=== PATIENT | female | born 1955 | race Hispanic/Latino ===

== ENCOUNTER 2021-03-23 09:41 | Observation (INO) | payer BC, OTHER ==
[2021-03-23 10:19] LABS: Protime INR 1.01
[2021-03-23 10:24] LABS: Absolute Lymphocytes (CBC) 2.1 K/uL (0.7-4.9); Basophils % 0.7 % (0-1.3); Lymphocytes % 29.6 % (15.3-44.8); MPV 7.5 fL (7.6-11.3); RBC Red Blood Cell Count 4.29 M/uL (3.86-4.86)
[2021-03-23 10:48] LABS: ALT/SGPT 27 U/L (12-78); AST/SGOT 19 U/L (15-37); Albumin 4.4 g/dL (3.4-5.0); Alkaline Phosphatase 88 U/L (45-117); BUN Blood Urea Nitrogen 23 mg/dL (7-18); Bicarbonate 26 mmol/L (21-32); Bilirubin Direct 0.1 mg/dL (0-0.2); Bilirubin Total 0.6 mg/dL (0.2-1.0); Glucose Level 114 mg/dL (74-106); Magnesium 2.2 mg/dL (1.8-2.4); NT PRO-BNP 110 pg/mL (<125); Potassium 3.2 mmol/L (3.5-5.1); Protein, Total 8.6 g/dL (6.4-8.2); Sodium Level 141 mmol/L (136-145); Troponin (Emerg Dept Use Only) < 0.02 ng/mL (0.0-0.045)
[2021-03-23] MEDS ORDERED: HYDRALAZINE HCL 20 MG/ML VIAL ONE (11:23)
--- NOTE | 2021-03-23 11:23 | RAD REPORT ---
EXAM DESCRIPTION: RAD - Chest Single View - 03/23/2021 11:13 am CLINICAL HISTORY: chest pressure/congestion COMPARISON: CHEST SINGLE VIEW dated 04/27/2014; FLUOROSCOPY-<1 HOUR dated 04/27/2014; THORAX WO CONTRA ST dated 04/29/2014 FINDINGS: Lines: Right IJ approach Port-A-Cath with tip overlying the right brachiocephalic vein. Lungs: No evidence of edema or pneumonia. Pleural: No significant pleural effusions or pneumothorax. Cardiac: The heart size is within normal limits. Bones: No acute fractures. Other: Surgical clips in the bilateral axilla. IMPRESSION: No acute cardiopulmonary disease.
--- NOTE | 2021-03-23 11:44 | EDPHYS ---
Physician Documentation [facility] Name: Sherrell Holm Age: 65 yrs Sex: Female : 1955 Arrival Date: 03/23/2021 Time: 09:43 Bed 4 Private MD: ED Physician Emre Lewis HPI: 03/23 10:22 This 65 yrs old Female presents to ER via Ambulatory with complaints of High jr8 Blood Pressure. 10:22 Associated signs and symptoms: Pertinent positives: chest pain, dyspnea. Severity of jr8 symptoms: At its worst the blood pressure was moderate. The patient has not experienced similar symptoms in the past. The patient has not recently seen a physician. This is a 65-year-old female patient that presented to emergency room with complaints of high blood pressure, shortness of breath, chest tightness.. 10:23 Onset: The symptoms/episode began/occurred gradually, 5 day(s) ago. jr8 Historical: - Allergies: 09:59 cancer medication; aa5 - Home Meds: 09:59 None [Active]; aa5 - PMHx: 09:59 Breast Cancer; aa5 - PSHx: 09:59 Double mastectomy; aa5 - Immunization history:: Client reports having NOT received the Covid vaccine. - Social history:: Smoking status: Patient denies any tobacco usage or history of. ROS: 10:23 Eyes: Negative for injury, pain, redness, and discharge, ENT: Negative for injury, jr8 pain, and discharge, Neck: Negative for injury, pain, and swelling, Back: Negative for injury and pain, MS/Extremity: Negative for injury and deformity, Skin: Negative for injury, rash, and discoloration, Neuro: Negative for headache, weakness, numbness, tingling, and seizure. 10:23 Cardiovascular: Positive for chest pain, Negative for edema, orthopnea, palpitations, paroxysmal nocturnal dyspnea. 10:23 Respiratory: Positive for dyspnea on exertion, shortness of breath. 10:23 Abdomen/GI: Positive for nausea. Exam: 10:23 Eyes: Pupils equal round and reactive to light, extra-ocular motions intact. Lids and jr8 lashes normal. Conjunctiva and sclera are non-icteric and not injected. Cornea within normal limits. Periorbital areas with no swelling, redness, or edema. ENT: Nares patent. No nasal discharge, no septal abnormalities noted. Tympanic membranes are normal and external auditory canals are clear. Oropharynx with no redness, swelling, or masses, exudates, or evidence of obstruction, uvula midline. Mucous membranes moist. Neck: Trachea midline, no thyromegaly or masses palpated, and no cervical lymphadenopathy. Supple, full range of motion without nuchal rigidity, or vertebral point tenderness. No Meningismus. Abdomen/GI: Soft, non-tender, with normal bowel sounds. No distension or tympany. No guarding or rebound. No evidence of tenderness throughout. Back: No spinal tenderness. No costovertebral tenderness. Full range of motion. Skin: Warm, dry with normal turgor. Normal color with no rashes, no lesions, and no evidence of cellulitis. MS/ Extremity: Pulses equal, no cyanosis. Neurovascular intact. Full, normal range of motion. Neuro: Awake and alert, GCS 15, oriented to person, place, time, and situation. Cranial nerves II-XII grossly intact. Motor strength 5/5 in all extremities. Sensory grossly intact. 10:23 Cardiovascular: Rate: tachycardic, Rhythm: regular, Pulses: Pulses are 3+ in right radial artery and left radial artery. Heart sounds: normal, normal S1and S2, no S3 or S4, no murmur, no rub, no gallop, Edema: is not appreciated, JVD: is not appreciated. Vital Signs: 09:46 BP 205 / 143; Pulse 127; Resp 18 S; Temp 98.6(O); Pulse Ox 97% on R/A; Weight 59.42 kg aa5 (R); Height 5 ft. 0 in. (152.40 cm) (R); 10:10 BP 198 / 103; Pulse 103; Resp 20 S; Pulse Ox 99% on R/A; aa5 11:04 BP 170 / 91; Pulse 91; Resp 18 S; Pulse Ox 100% on R/A; aa5 11:42 BP 157 / 107; Pulse 109; Resp 20 S; Pulse Ox 99% on R/A; aa5 11:43 Pulse 140; aa5 11:52 Pulse 120; aa5 13:00 BP 150 / 86; Pulse 115; Resp 18 S; Temp 98.3(TE); Pulse Ox 99% on R/A; aa5 09:46 Body Mass Index 25.58 (59.42 kg, 152.40 cm) [facility] MDM: 09:50 Patient medically screened. [facility] [[email or web address]] 11:42 Data reviewed: vital signs, nurses notes, lab test result(s), EKG, radiologic studies, jr CT scan, plain films. Data interpreted: Pulse oximetry: on room air is 98 %. Interpretation: normal. Counseling: I had a detailed discussion with the patient and/or guardian regarding: the historical points, exam findings, and any diagnostic results supporting the discharge/admit diagnosis, lab results, radiology results, the need for further work-up and treatment in the hospital. ED course: Tinges to have persistent tachycardia and chest tightness. Will be admitted for observation to have cardiology see her. Will complete CAT scan of her chest to rule out pulmonary embolism as well.. 03/23 09:57 Order name: Basic Metabolic Panel [facility] 03/23 09:57 Order name: CBC with Diff; Complete Time: 11:02 [facility] 03/23 09:57 Order name: LFT's; Complete Time: 11:02 [facility] 03/23 09:57 Order name: Magnesium; Complete Time: 11:02 [facility] 03/23 09:57 Order name: NT PRO-BNP; Complete Time: 11:02 [facility] 03/23 09:57 Order name: PT-INR; Complete Time: 10:24 [facility] 03/23 09:57 Order name: Troponin (emerg Dept Use Only); Complete Time: 11:02 [facility] 03/23 09:57 Order name: XRAY Chest (1 view); Complete Time: 11:37 [facility] 03/23 09:58 Order name: Basic Metabolic Panel; Complete Time: 11:02 [facility] 03/23 12:00 Order name: COVID-19 : Document "Date of Symptom Onset" if Symptomatic. [facility] 03/23 14:46 Order name: SARS-COV-2 RT PCR; Complete Time: 14:54 [facility] 03/23 15:06 Order name: T4 Free; Complete Time: 15:41 [facility] 03/23 15:06 Order name: Thyroid Stimulating Hormone; Complete Time: 15:41 [facility] 03/23 17:11 Order name: Troponin I; Complete Time: 17:12 [facility] 03/23 09:57 Order name: EKG; Complete Time: 09:58 [facility] 03/23 09:57 Order name: Cardiac monitoring; Complete Time: 10:00 aa5 03/23 09:57 Order name: EKG - Nurse/Tech; Complete Time: 10:00 aa5 03/23 09:57 Order name: IV Saline Lock; Complete Time: 10:12 aa5 03/23 09:57 Order name: Labs collected and sent; Complete Time: 10:12 aa5 03/23 09:57 Order name: O2 Per Protocol; Complete Time: 10:00 aa5 03/23 09:57 Order name: O2 Sat Monitoring; Complete Time: 10:00 aa5 03/23 11:42 Order name: CT Chest For PE Angio; Complete Time: 12:29 jr8 03/23 16:18 Order name: CT; Complete Time: 16:30 EDMS Administered Medications: 10:55 Drug: hydrALAZINE 10 mg Route: IVP; Site: right antecubital; aa5 11:42 Follow up: Response: No adverse reaction aa5 11:23 Drug: Potassium Chloride 40 mEq Route: PO; aa5 11:52 Follow up: Response: No adverse reaction aa5 12:50 Drug: Aspirin Chewable Tablet 324 mg Route: PO; aa5 14:00 Follow up: Response: No adverse reaction aa5 Disposition: 18:33 Co-signature as Attending Physician, Emre Lewis MD I agree with the assessment and rn plan of care. Attestation: The patient's history, exam findings, diagnostics, and a summary of any interventions or procedures was reviewed in detail with Venkat GALEANO. Disposition Summary: 03/23/21 11:43 Hospitalization Ordered Hospitalization Status: Observation [facility] [[email or web address]] Provider: Carlos Enrique Bearden Amarilis Condition: Stable [facility] [[email or web address]] Problem: new jr8 Symptoms: are unchanged jr8 Bed/Room Type: Standard [facility] [[email or web address]] Location: Telemetry/MedSurg (observation)(03/23/21 16:33) eb Room Assignment: 215(03/23/21 16:33) eb Diagnosis - Chest pain, unspecified jr Forms: - Medication Reconciliation Form jr8 - SBAR form jr8 Signatures: Dispatcher [employer] EDMS Emre Lewis MD MD rn Calderon, Audri, RN RN aa5 Roszak, Josh, PA PA [facility] [[email or web address]] Asmita Carvajal eb Corrections: (The following items were deleted from the chart) 11:43 Telemetry/MedSurg (observation) jr8 aa5 15: 11:43 jr8 aa5 16: 15:25 [facility] aa5 eb 16:33 15:25 [facility]- aa5 eb
--- NOTE | 2021-03-23 11:44 | ER ---
Nurse's Notes [facility] Name: Sherrell Holm Age: 65 yrs Sex: Female : 1955 Arrival Date: 03/23/2021 Time: 09:43 Bed 4 Private MD: Diagnosis: Chest pain, unspecified Presentation: 03/23 09:46 Chief complaint: Patient states: chest pressure and congestion that began on Friday, pt aa5 reports being seen at [facility] today and sent here because her blood pressure was "high". Pt also reports difficulty breathing, denies cough. 09:46 Coronavirus screen: congestion. Ebola Screen: Patient negative for fever greater than aa5 or equal to 101.5 degrees Fahrenheit, and additional compatible Ebola Virus Disease symptoms. Initial Sepsis Screen: Does the patient meet any 2 criteria? HR > 90 bpm. Does the patient have a suspected source of infection? No. Patient's initial sepsis screen is negative. Risk Assessment: Do you want to hurt yourself or someone else? Patient reports no desire to harm self or others. Onset of symptoms was February 2021. 09:46 Acuity: GRACE 2 aa5 09:46 Method Of Arrival: Ambulatory aa5 Historical: - Allergies: 09:59 cancer medication; aa5 - Home Meds: 09:59 None [Active]; aa5 - PMHx: 09:59 Breast Cancer; aa5 - PSHx: 09:59 Double mastectomy; aa5 - Immunization history:: Client reports having NOT received the Covid vaccine. - Social history:: Smoking status: Patient denies any tobacco usage or history of. Screenin:02 Abuse screen: Denies threats or abuse. Denies injuries from another. Nutritional jl7 screening: No deficits noted. Tuberculosis screening: No symptoms or risk factors identified. Fall Risk IV access (20 points). Total Man Fall Scale indicates No Risk (0-24 pts). Assessment: 09:50 General: Appears comfortable, Behavior is calm, cooperative. Pain: Denies pain. Neuro: aa5 Level of Consciousness is awake, alert, obeys commands, Oriented to person, place, time, situation. Cardiovascular: Heart tones S1 S2 present Rhythm is regular. Respiratory: Reports shortness of breath chest congestion/pressure Airway is patent Respiratory effort is even, unlabored, Respiratory pattern is regular, symmetrical, Breath sounds are clear bilaterally. GI: Abdomen is round non-distended, Patient currently denies diarrhea, nausea, vomiting. : No signs and/or symptoms were reported regarding the genitourinary system. EENT: No signs and/or symptoms were reported regarding the EENT system. Derm: Skin is pink, warm \\T\\ dry. Musculoskeletal: Range of motion: intact in all extremities. 11:04 Reassessment: Patient is alert, oriented x 3, equal unlabored respirations, skin aa5 warm/dry/pink. Patient denies pain at this time. General: Appears comfortable, Behavior is calm, cooperative. 11:42 Reassessment: Patient is alert, oriented x 3, equal unlabored respirations, skin aa5 warm/dry/pink. Pt currently complaining of increased chest pressure, pt currently crying and appears anxious. Pt's HR increased to 140 bpm. PA at bedside. PA notified pt of need for admission, pt verbalized understanding. . 11:52 Reassessment: Pt to CT via stretcher, HR currently 120bpm. Pt appears more calm than aa5 previous assessment. . 12:35 Reassessment: Pt back from CT scan, Nolan Jiménez NP (hospitalist at bedside). . aa5 13:00 Reassessment: Patient is alert, oriented x 3, equal unlabored respirations, skin aa5 warm/dry/pink. Patient denies pain at this time. 13:00 General: Behavior is anxious. aa5 Vital Signs: 09:46 BP 205 / 143; Pulse 127; Resp 18 S; Temp 98.6(O); Pulse Ox 97% on R/A; Weight 59.42 kg aa5 (R); Height 5 ft. 0 in. (152.40 cm) (R); 10:10 BP 198 / 103; Pulse 103; Resp 20 S; Pulse Ox 99% on R/A; aa5 11:04 BP 170 / 91; Pulse 91; Resp 18 S; Pulse Ox 100% on R/A; aa5 11:42 BP 157 / 107; Pulse 109; Resp 20 S; Pulse Ox 99% on R/A; aa5 11:43 Pulse 140; aa5 11:52 Pulse 120; aa5 13:00 BP 150 / 86; Pulse 115; Resp 18 S; Temp 98.3(TE); Pulse Ox 99% on R/A; aa5 09:46 Body Mass Index 25.58 (59.42 kg, 152.40 cm) aa5 ED Course: 09:43 Patient arrived in ED. am2 09:46 Arm band placed on. aa5 09:50 Екатерина Miller RN is Primary Nurse. aa5 09:50 Venkat Mendoza PA is PHCP. jr8 09:50 Emre Lewis MD is Attending Physician. jr8 09:58 Triage completed. aa5 10:02 Patient has correct armband on for positive identification. Placed in gown. Bed in low jl7 position. Call light in reach. Side rails up X 1. quality assurance monitor on. Pulse ox on. NIBP on. Warm blanket given. 10:02 EKG done, by ED staff, reviewed by Venkat GALEANO. jl7 10:20 Inserted saline lock: 22 gauge in left antecubital area, using aseptic technique. aa5 ,using aseptic technique. IV inserted by ADALBERTO Mosley. 11:13 XRAY Chest (1 view) In Process Unspecified. EDMS 11:42 Carlos Enrique Bearden DO is Hospitalizing Provider. jr8 12:14 CT Chest For PE Angio In Process Unspecified. EDMS 14:00 Patient admitted, IV remains in place. aa5 14:00 No provider procedures requiring assistance completed. aa5 Administered Medications: 10:55 Drug: hydrALAZINE 10 mg Route: IVP; Site: right antecubital; aa5 11:42 Follow up: Response: No adverse reaction aa5 11:23 Drug: Potassium Chloride 40 mEq Route: PO; aa5 11:52 Follow up: Response: No adverse reaction aa5 12:50 Drug: Aspirin Chewable Tablet 324 mg Route: PO; aa5 14:00 Follow up: Response: No adverse reaction aa5 Outcome: 11:43 Decision to Hospitalize by Provider. jr8 14:00 Admitted to ER Hold. Please see [facility] for further documentation. aa5 14:00 Condition: stable 14:00 Instructed on the need for admit, Demonstrated understanding of instructions. aa5 17:58 Patient left the ED. aa5 Signatures: Dispatcher [employer] EDAZ Екатерина Miller RN RN aa5 Venkat Mendoza PA PA jr8 Benito Chamberlain RN RN jl7 Sumi Fisher am2 Corrections: (The following items were deleted from the chart) 16:00 09:46 BP 205 / 143; Pulse 127bpm; Resp 18bpm; Spontaneous; Pulse Ox 97% RA; Temp 98.6F aa5 Oral; 59.42 kg Reported; Height 5 ft. 1 in. Reported; BMI: 24.7; aa5 03/24 15:14 14:00 Response: No adverse reaction aa5 aa5
[2021-03-23] MEDS ORDERED: POTASSIUM CL SA 10 MEQ TAB PO ONE (11:45)
[2021-03-23] MEDS ORDERED: ASPIRIN 81 MG CHEWABLE TABLET ONE (12:22)
--- NOTE | 2021-03-23 12:23 | RAD REPORT ---
EXAM DESCRIPTION: CT - Chest For Pe Angio - 03/23/2021 12:14 pm CLINICAL HISTORY: CHEST PAIN COMPARISON: THORAX WO CONTRAST dated 04/29/2014; RAD THERAPY FLD PLACECHEST dated 11/14/2011; THORAX W CONTRAST dated 04/01/2011 FINDINGS: Chest Wall: Right upper chest wall Port-A-Cath with tip overlying the right brachiocephali c vein. Surgical clips in the axilla. Lungs: 8 mm right upper lobe solid pulmonary nodule previously measured 12 millimeters. Small focus o f nodularity in the left upper lobe on image 33, series 402 is chronic and of doubtful clinical signi ficance. Postradiation changes in the left lung. Pleura: No significant effusions or pneumothorax. Mediastinum/ulises: No pathologic lymphadenopathy. Moderate hiatal hernia. Pulmonary arteries/Aorta: No filling defect identified. No aortic aneurysm. Heart: No significant pericardial effusion. Normal heart size. Upper abdomen: No acute abnormality. Bones: No acute abnormality. All CT scans are performed using dose optimization technique as appropriate and may include automated exposure control or mA/KV adjustment according to patient size. IMPRESSION: Negative for pulmonary embolism. No acute process identified. Incidental findings as not ed above.
[2021-03-23] MEDS ORDERED: HYDROCODONE/APAP 5/325 MG TAB PO PRN (14:11)
[2021-03-23] MEDS: NA CHLORIDE 0.9% 1,000 ML IV SCH ×2 (14:11→18:27)
[2021-03-23] MEDS ORDERED: ACETAMINOPHEN 500 MG TAB PO PRN (14:11)
[2021-03-23] MEDS ORDERED: ONDANSETRON 4 MG/2 ML VIAL IV PRN (14:11)
[2021-03-23] MEDS ORDERED: HYDRALAZINE HCL 20 MG/ML VIAL IV PRN (14:46)
--- NOTE | 2021-03-23 14:55 | P.HP ---
Certification for Inpatient With expected LOS: >2 Midnights Patient will require the following post-hospital care: None Practitioner: I am a practitioner with admitting privileges, knowledge of patient current condition, hospital course, and medical plan of care. Services: Services provided to patient in accordance with Admission requirements found in Title 42 Section 412.3 of the Code of Federal Regulations <Nolan Jiménez - Last Filed: 03/23/21 14:50> Patient admitted to: Observation With expected LOS: <2 Midnights <Carlos Enrique Bearden - Last Filed: 03/23/21 16:28> Patient History Date of Service: 03/23/21 Primary Care Provider: None Reason for admission: Hypertension with CP History of Present Illness: 65-year-old female who has experienced 6 days of intermittent chest pressure and high blood pressure. She has had 2-3 episodes of chest pressure per day each lasting a few minutes. She rates the discomfort a 10 out of 10. She is also had tachycardia frequently during the past 6 days. Apparently she went to the [facility] today in order to be evaluated and they referred her to the emergency room because of her blood pressure. Home medications list reviewed: No - Past Medical/Surgical History Diabetic: No -: HTN -: Depression -: Left mastectomy -: right masectomy Psychosocial/ Personal History: Retired, living at home with - Family History Mother -: Hypertension Father -: Hypertension Brother -: Hypertension Sister -: Hypertension - Social History Smoking Status: Never smoker Alcohol use: No CD- Drugs: No Caffeine use: Yes Place of Residence: Home <KadyahsanNolan - Last Filed: 03/23/21 14:50> Date of Service: 03/23/21 - Past Medical/Surgical History -: Right masectomy <Carlos Enrique Bearden - Last Filed: 03/23/21 16:28> Allergies platelet Adverse Reaction (Intermediate, Uncoded 04/27/14 09:08) Itching Home Medications: NK [No Home Meds] 04/25/14 Review of Systems 10-point ROS is otherwise unremarkable General: Malaise Eyes: Redness ENT: Unremarkable Respiratory: Unremarkable Cardiovascular: Chest Pain (Pressure mid chest radiating to neck and also involving back. ) Gastrointestinal: Unremarkable Genitourinary: Unremarkable Musculoskeletal: Unremarkable Integumentary: Rash (Facial rash) Neurological: Unremarkable Lymphatics: Unremarkable <Nolan Jiménez - Last Filed: 03/23/21 14:50> Physical Examination - Physical Exam General: Alert, In no apparent distress, Oriented x3, Cooperative HEENT: Atraumatic, Normocephalic, PERRLA, Other (Eyes slightly reddened) Neck: Supple, 2+ carotid pulse no bruit, JVD not distended Respiratory: Clear to auscultation bilaterally, Normal air movement Cardiovascular: No edema, Normal pulses, Regular rate/rhythm, Other (Tachycardia) Capillary refill: Brisk Gastrointestinal: Normal bowel sounds, Soft and benign, Non-distended, Other (States burning feeling during examination. No guarding or wincing noted) Musculoskeletal: No clubbing, No swelling, No contractures, No erythema Integumentary: Rash(es) (Rash on cheeks ) Neurological: Normal speech, Normal strength at 5/5 x4 extr, Normal tone, Sensation intact External genitalia: Deferred Rectal: Deferred - Studies Laboratory Data (last 24 hrs) 03/23/21 10:08: PT 11.6, INR 1.01 03/23/21 10:08: WBC 7.00, Hgb 15.0, Hct 43.0, Plt Count 299 03/23/21 10:08: Sodium 141, Potassium 3.2 L, BUN 23 H, Creatinine 0.81, Glucose 114 H, Magnesium 2.2, Total Bilirubin 0.6, AST 19, ALT 27, Alkaline Phosphatase 88 <Nolan Jiménez - Last Filed: 03/23/21 14:50> - Studies Laboratory Data (last 24 hrs) 03/23/21 10:08: PT 11.6, INR 1.01 03/23/21 10:08: WBC 7.00, Hgb 15.0, Hct 43.0, Plt Count 299 03/23/21 10:08: Sodium 141, Potassium 3.2 L, BUN 23 H, Creatinine 0.81, Glucose 114 H, Magnesium 2.2, Total Bilirubin 0.6, AST 19, ALT 27, Alkaline Phosphatase 88 <Carlos Enrique Bearden - Last Filed: 03/23/21 16:28> Assessment and Plan - Plan Assessment: Hypertension Atypical Chest Pain Plan: Hypertension:Metoprolol po, hydralizine 10mg prn monitor blood pressure. Atypical Chest Pain: O2 as needed, cardiac care unit nurse, trend troponins, aspirin, echocardiogram if available. Consult with Dr. Santana. DVT PPx:Lovastatin 40mg SQ CODE STATUS: Full Code Discharge Plan: Home Plan to discharge in: 48 Hours - Advance Directives Does patient have a Living Will: No Does patient have a Durable POA for Healthcare: No - Code Status/Comfort Care Code Status Assessed: Yes Code Status: Full Code Critical Care: No Time Spent Managing Pts Care (In Minutes): 70 <Nolan Jiménez - Last Filed: 03/23/21 14:50> - Plan Patient seen and evaluated. Discussed with nurse practitioner. Agree with plan of care. COVID: Negative CT Scan: COMPARISON: THORAX WO CONTRAST dated 04/29/2014; RAD THERAPY FLD PLACECHEST dated 11/14/2011; THORAX W CONTRAST dated 04/01/2011 FINDINGS: Chest Wall: Right upper chest wall Port-A-Cath with tip overlying the right brachiocephalic vein. Surgical clips in the axilla. Lungs: 8 mm right upper lobe solid pulmonary nodule previously measured 12 millimeters. Small focus of nodularity in the left upper lobe on image 33, series 402 is chronic and of doubtful clinical significance. Postradiation changes in the left lung. Pleura: No significant effusions or pneumothorax. Mediastinum/ulises: No pathologic lymphadenopathy. Moderate hiatal hernia. Pulmonary arteries/Aorta: No filling defect identified. No aortic aneurysm. Heart: No significant pericardial effusion. Normal heart size. Upper abdomen: No acute abnormality. Bones: No acute abnormality. All CT scans are performed using dose optimization technique as appropriate and may include automated exposure control or mA/KV adjustment according to patient size. IMPRESSION: Negative for pulmonary embolism. No acute process identified. Incidental findings as noted above. Impression: Chest pain Hypertension Abdominal pain suspect GERD Plan: Chest pain: We will monitor troponin. Will monitor on telemetry. Await recommendations by cardiology. Anticipate possible discharge tomorrow if work- up unremarkable and blood pressure better controlled. Patient may benefit with echocardiogram and outpatient cardiac stress test. Patient needs to establish care with a PCP and cardiology. Hypertension: Blood pressure elevated upon admission. Will increase metoprolol to 50 mg 1 pill twice daily. Patient may require additional medication including lisinopril. Will monitor and adjust medication. Abdominal pain suspect GERD: We will provide Protonix. Will check CT scan to further evaluate. DVT prophylaxis: Lovenox CODE STATUS: Full code Advance care planning: Home at discharge <Carlos Enrique Bearden - Last Filed: 03/23/21 16:28>
[2021-03-23 15:06] LABS: Thyroid Stimulating Hormone 1.21 uIU/mL (0.360-3.740)
[2021-03-23] MEDS ORDERED: NA CHLORIDE 0.9% 1,000 ML ONE (15:35)
[2021-03-23] MEDS ORDERED: SODIUM CHLORIDE 0.9% 10ML INJ IV PRN (15:43)
[2021-03-23 16:00] VITALS: BMI 25.5
--- NOTE | 2021-03-23 16:18 | RAD REPORT ---
EXAM DESCRIPTION: CT - Abdomen Pelvis Wo Contrast - 03/23/2021 4:10 pm CLINICAL HISTORY: Abdominal pain. abdominal pain COMPARISON: Chest For Pe Angio dated 03/23/2021 TECHNIQUE: CT imaging of the abdomen and pelvis was performed without contrast. Solid organ, bowel a nd vascular assessment is limited due to lack of IV and oral contrast. All CT scans are performed using dose optimization technique as appropriate and may include automated exposure control or mA/KV adjustment according to patient size. FINDINGS: The lower lung odminique are clear.Moderate hiatal hernia. The liver, spleen, pancreas, adrenal glands and kidneys are within normal limits for a limited non-co ntrast examination.Contrast is seen in the system from recent CT. No bowel obstruction, free air, free fluid or abscess. Sigmoid diverticulosis without diverticulitis. The appendix is normal. The osseous structures are within normal limits. IMPRESSION: No acute intra-abdominal or pelvic findings. Moderate axial hiatal hernia. A limited non-contrast examination was performed as detailed.
[2021-03-23] MEDS ORDERED: PNEUMOCOCCAL VACCINE 0.5 ML IMVAC ONE (17:00)
[2021-03-23] MEDS ORDERED: INFLUENZA VACCINE (for 6+ mo) 0.5 ML DOSE IMVAC ONE (17:00)
[2021-03-23] MEDS ORDERED: METOPROLOL TAR 25 MG TAB PO SCH (18:00)
[2021-03-23] MEDS: METOPROLOL TAR 25 MG TAB PO SCH (18:26)
[2021-03-23] MEDS: lisinopriL 10 MG TAB PO SCH (20:31)
[2021-03-23 22:45] LABS: Potassium 3.6 mmol/L (3.5-5.1); Troponin I < 0.02 ng/mL (0.0-0.045)
[2021-03-24 05:51] LABS: Absolute Lymphocytes (CBC) 2.4 K/uL (0.7-4.9); Basophils % 0.7 % (0-1.3); Hematocrit 36.1 % (36.0-45.0); Lymphocytes % 29.4 % (15.3-44.8); MPV 7.6 fL (7.6-11.3)
--- NOTE | 2021-03-24 06:03 | P.PN ---
Subjective Date of Service: 03/24/21 Primary Care Provider: None Chief Complaint: Hypertension with CP Subjective: Improving, Doing well Physical Examination - Vital Signs Temperature: 97.6 F Blood Pressure: 125/70 Pulse: 65 Respirations: 16 Pulse Ox (%): 94 - Studies Laboratory Data (last 24 hrs) 03/23/21 10:08: PT 11.6, INR 1.01 03/23/21 10:08: WBC 7.00, Hgb 15.0, Hct 43.0, Plt Count 299 03/23/21 10:08: Sodium 141, Potassium 3.2 L, BUN 23 H, Creatinine 0.81, Glucose 114 H, Magnesium 2.2, Total Bilirubin 0.6, AST 19, ALT 27, Alkaline Phosphatase 88 Assessment & Plan Discharge Plan: Home Plan to discharge in: 24 Hours Physician Review Additional Text: COVID: Negative CT Scan: COMPARISON: THORAX WO CONTRAST dated 04/29/2014; RAD THERAPY FLD PLACECHEST dated 11/14/2011; THORAX W CONTRAST dated 04/01/2011 FINDINGS: Chest Wall: Right upper chest wall Port-A-Cath with tip overlying the right brachiocephalic vein. Surgical clips in the axilla. Lungs: 8 mm right upper lobe solid pulmonary nodule previously measured 12 millimeters. Small focus of nodularity in the left upper lobe on image 33, series 402 is chronic and of doubtful clinical significance. Postradiation changes in the left lung. Pleura: No significant effusions or pneumothorax. Mediastinum/ulises: No pathologic lymphadenopathy. Moderate hiatal hernia. Pulmonary arteries/Aorta: No filling defect identified. No aortic aneurysm. Heart: No significant pericardial effusion. Normal heart size. Upper abdomen: No acute abnormality. Bones: No acute abnormality. All CT scans are performed using dose optimization technique as appropriate and may include automated exposure control or mA/KV adjustment according to patient size. IMPRESSION: Negative for pulmonary embolism. No acute process identified. Incidental findings as noted above. CT AB scan: COMPARISON: Chest For Pe Angio dated 03/23/2021 TECHNIQUE: CT imaging of the abdomen and pelvis was performed without contrast. Solid organ, bowel and vascular assessment is limited due to lack of IV and oral contrast. All CT scans are performed using dose optimization technique as appropriate and may include automated exposure control or mA/KV adjustment according to patient size. FINDINGS: The lower lung dominique are clear.Moderate hiatal hernia. The liver, spleen, pancreas, adrenal glands and kidneys are within normal limits for a limited non-contrast examination.Contrast is seen in the system from recent CT. No bowel obstruction, free air, free fluid or abscess. Sigmoid diverticulosis without diverticulitis. The appendix is normal. The osseous structures are within normal limits. IMPRESSION: No acute intra-abdominal or pelvic findings. Moderate axial hiatal hernia. A limited non-contrast examination was performed as detailed. Physical exam: General: Patient alert, cooperative. Neck: Supple Heart: Regular rate and rhythm Lungs: Clear to auscultation Abdomen: Soft nontender nondistended Extremities: Good range of motion. No focal deficits. No edema noted Impression: Chest pain Hypertension Abdominal pain secondary to GERD with hiatal hernia Plan: Chest pain: Cardiac enzymes unremarkable. No further work-up needed inpatient. Recommend follow-up with cardiology as an outpatient. Patient will have outpatient echocardiogram and cardiac stress tests due to her risk factors. Continue with aspirin 81 mg daily. Hypertension: Blood pressure better controlled with metoprolol 50 mg 1 pill twice daily and lisinopril 10 mg 1 pill twice daily. We will continue with medication at discharge. Abdominal pain secondary to GERD with moderate hiatal hernia: Continue Protonix at discharge. Will recommend GI evaluation as an outpatient. DVT prophylaxis: Lovenox CODE STATUS: Full code Advance care planning: Home at discharge Time Spent Managing Pts Care (In Minutes): 55
[2021-03-24 06:17] LABS: ALT/SGPT 21 U/L (12-78); AST/SGOT 15 U/L (15-37); Albumin 3.4 g/dL (3.4-5.0); Alkaline Phosphatase 66 U/L (45-117); BUN Blood Urea Nitrogen 19 mg/dL (7-18); Bicarbonate 24 mmol/L (21-32); Bilirubin Total 0.5 mg/dL (0.2-1.0); Glucose Level 92 mg/dL (74-106); HDL Cholesterol 64 mg/dL (40-60); LDL Cholesterol, Calculated 117 (<130); Magnesium 2.2 mg/dL (1.8-2.4); Potassium 3.6 mmol/L (3.5-5.1); Protein, Total 6.8 g/dL (6.4-8.2); Sodium Level 144 mmol/L (136-145)
[2021-03-24] MEDS ORDERED: POTASSIUM CL SA 10 MEQ TAB PO ONE (06:27)
[2021-03-24] MEDS: METOPROLOL TAR 25 MG TAB PO SCH (06:37)
[2021-03-24] MEDS: lisinopriL 10 MG TAB PO SCH (08:00)
[2021-03-24 08:40] VITALS: O2SAT 98
[2021-03-24] MEDS ORDERED: PANTOPRAZOLE 40 MG INJ IVP SCH (09:00)
[2021-03-24] MEDS ORDERED: ASPIRIN EC 81 MG TAB PO SCH (09:00)
[2021-03-24] MEDS ORDERED: ENOXAPARIN 40 MG/0.4 ML SQ SCH (09:00)
[2021-03-24 10:10] VITALS: BP 125/70; TEMP 97.6
--- NOTE | 2021-03-24 10:11 | P.DS ---
Admission Date: 03/23/21 Discharge Date: 03/24/21 Primary Care Provider: None Disposition: ROUTINE DISCHARGE Discharge Condition: GOOD Reason for Admission: Hypertension with CP Consultations: Cardiology-Dr. Santana Procedures: COVID: Negative CT Scan: COMPARISON: THORAX WO CONTRAST dated 04/29/2014; RAD THERAPY FLD PLACECHEST dated 11/14/2011; THORAX W CONTRAST dated 04/01/2011 FINDINGS: Chest Wall: Right upper chest wall Port-A-Cath with tip overlying the right brachiocephalic vein. Surgical clips in the axilla. Lungs: 8 mm right upper lobe solid pulmonary nodule previously measured 12 millimeters. Small focus of nodularity in the left upper lobe on image 33, series 402 is chronic and of doubtful clinical significance. Postradiation changes in the left lung. Pleura: No significant effusions or pneumothorax. Mediastinum/ulises: No pathologic lymphadenopathy. Moderate hiatal hernia. Pulmonary arteries/Aorta: No filling defect identified. No aortic aneurysm. Heart: No significant pericardial effusion. Normal heart size. Upper abdomen: No acute abnormality. Bones: No acute abnormality. All CT scans are performed using dose optimization technique as appropriate and may include automated exposure control or mA/KV adjustment according to patient size. IMPRESSION: Negative for pulmonary embolism. No acute process identified. Incidental findings as noted above. CT AB scan: COMPARISON: Chest For Pe Angio dated 03/23/2021 TECHNIQUE: CT imaging of the abdomen and pelvis was performed without contrast. Solid organ, bowel and vascular assessment is limited due to lack of IV and oral contrast. All CT scans are performed using dose optimization technique as appropriate and may include automated exposure control or mA/KV adjustment according to patient size. FINDINGS: The lower lung dominique are clear.Moderate hiatal hernia. The liver, spleen, pancreas, adrenal glands and kidneys are within normal limits for a limited non-contrast examination.Contrast is seen in the system from recent CT. No bowel obstruction, free air, free fluid or abscess. Sigmoid diverticulosis without diverticulitis. The appendix is normal. The osseous structures are within normal limits. IMPRESSION: No acute intra-abdominal or pelvic findings. Moderate axial hiatal hernia. A limited non-contrast examination was performed as detailed. Medical problem list: Chest pain Hypertension Abdominal pain secondary to GERD with hiatal hernia Brief History of Present Illness: 65-year-old female presented with chest pain and elevated blood pressure. She reported chest pain today. Discomfort was 10 out of 10. Patient came to the ER for further evaluation. Patient found to have elevated blood pressure. CT chest unremarkable. CT abdomen showed moderate hiatal hernia. Patient admitted for treatment. Hospital Course: Patient presented with chest pain. Patient was admitted for further evaluation and observation. Cardiac enzymes unremarkable. Case discussed with cardiology. No intervention needed at this time. Chest pain resolved. Patient with elevated blood pressure with hypertension. Medication was initiated. Blood pressure better controlled. At discharge the patient will continue with aspirin 81 mg daily, metoprolol 50 mg 1 pill twice daily, and lisinopril 10 mg 1 pill twice daily. Recommend to maintain blood pressure less than 130/80. Further adjustment can be done by her PCP. May need to hold medication if blood pressure systolic less than 110. Recommend follow-up with PCP to further monitor and address her condition. Recommend follow-up with cardiology in 1 to 2 weeks to follow-up this hospitalization. Patient would benefit with outpatient echocardiogram and cardiac stress test to further evaluate her condition. Education on hypertension provided. Patient had abdominal pain. This is likely related to GERD with moderate hiatal hernia. CT scan showed moderate size hiatal hernia. At discharge patient will continue with Protonix 40 mg daily. Recommend GI evaluation as an outpatient. Patient would benefit with EGD to further address. Dietary and lifestyle modification addressed in detail. Education will be provided. Vital Signs/Physical Exam: Temp Pulse Resp BP Pulse Ox 97.6 F 65 16 125/70 94 03/24/21 10:10 03/24/21 10:10 03/24/21 10:10 03/24/21 10:10 03/24/21 10:10 General: Alert, In no apparent distress, Oriented x3, Cooperative HEENT: Atraumatic Neck: Supple Respiratory: Clear to auscultation bilaterally, Normal air movement Cardiovascular: Normal pulses, Regular rate/rhythm Gastrointestinal: Normal bowel sounds, No ascites Musculoskeletal: No erythema, No tenderness, No warmth Integumentary: No tenderness/swelling Neurological: Normal speech, Normal strength at 5/5 x4 extr, Normal tone Laboratory Data at Discharge: WBC 8.30 K/uL (4.3-10.9) D 03/24/21 05:15 Hgb 12.8 g/dL (12.0-15.0) 03/24/21 05:15 Hct 36.1 % (36.0-45.0) D 03/24/21 05:15 Plt Count 285 K/uL (152-406) 03/24/21 05:15 PT 11.6 SECONDS (9.5-12.5) 03/23/21 10:08 INR 1.01 03/23/21 10:08 Sodium 144 mmol/L (136-145) 03/24/21 05:15 Potassium 3.6 mmol/L (3.5-5.1) 03/24/21 05:15 BUN 19 mg/dL (7-18) H 03/24/21 05:15 Creatinine 0.61 mg/dL (0.55-1.3) 03/24/21 05:15 Glucose 92 mg/dL (74-106) 03/24/21 05:15 Magnesium 2.2 mg/dL (1.8-2.4) 03/24/21 05:15 Total Bilirubin 0.5 mg/dL (0.2-1.0) 03/24/21 05:15 AST 15 U/L (15-37) 03/24/21 05:15 ALT 21 U/L (12-78) 03/24/21 05:15 Alkaline Phosphatase 66 U/L (45-117) 03/24/21 05:15 Troponin I < 0.02 ng/mL (0.0-0.045) 03/23/21 22:14 Triglycerides 103 mg/dL (<150) 03/24/21 05:15 Cholesterol 202 mg/dL (<200) H 03/24/21 05:15 HDL Cholesterol 64 mg/dL (40-60) H 03/24/21 05:15 Cholesterol/HDL Ratio 3.16 03/24/21 05:15 Home Medications: Aspirin [Aspirin EC 81 MG] 81 mg PO DAILY #90 tablet. 03/24/21 Metoprolol Tartrate 50 mg PO BID #60 tablet 03/24/21 Pantoprazole [Protonix Tab] 40 mg PO DAILY #30 tab 03/24/21 lisinopriL [Prinivil*] 10 mg PO BID #60 tab 03/24/21 New Medications: Aspirin [Aspirin EC 81 MG] 81 mg PO DAILY #90 tablet. Metoprolol Tartrate 50 mg PO BID #60 tablet lisinopriL [Prinivil*] 10 mg PO BID #60 tab Pantoprazole [Protonix Tab] 40 mg PO DAILY #30 tab Physician Discharge Instructions: Patient presented with chest pain. Patient was admitted for further evaluation and observation. Cardiac enzymes unremarkable. Case discussed with cardiology. No intervention needed at this time. Chest pain resolved. Patient with elevated blood pressure with hypertension. Medication was initiated. Blood pressure better controlled. At discharge the patient will continue with aspirin 81 mg daily, metoprolol 50 mg 1 pill twice daily, and lisinopril 10 mg 1 pill twice daily. Recommend to maintain blood pressure less than 130/80. Further adjustment can be done by her PCP. May need to hold medication if blood pressure systolic less than 110. Recommend follow-up with PCP to further monitor and address her condition. Recommend follow-up with cardiology in 1 to 2 weeks to follow-up this hospitalization. Patient would benefit with outpatient echocardiogram and cardiac stress test to further evaluate her condition. Education on hypertension provided. Patient had abdominal pain. This is likely related to GERD with moderate hiatal hernia. CT scan showed moderate size hiatal hernia. At discharge patient will continue with Protonix 40 mg daily. Recommend GI evaluation as an outpatient. Patient would benefit with EGD to further address. Dietary and lifestyle modification addressed in detail. Education will be provided. Diet: AHA Activity: Ad billy Followup: FERNANDO LOPEZ [Primary Care Provider] - Time spent managing pt's care (in minutes): 55
--- NOTE | 2021-03-24 11:15 | EKG ---
Test Date: 2021-03-23 Test Time: 09:58:07 Log Inspector: YOU MEASUREMENT RESULTS: Intervals: Rate: 100 CA: 132 QRSD: 84 QT: 348 QTc: 448 [place]: P: 39 CA: 132 QRS: 6 T: 47 INTERPRETIVE STATEMENTS: Normal sinus rhythm Normal ECG Compared to ECG 12/07/2013 11:45:14 No significant changes Electronically Signed On 03-24-21 11:13:15 CDT by Maico Santana
[2021-03-24] MEDS ORDERED: PNEUMOCOCCAL VACCINE 0.5 ML IMVAC ONE (12:00)
[2021-03-24] MEDS ORDERED: INFLUENZA VACCINE (for 6+ mo) 0.5 ML DOSE IMVAC ONE (12:00)
--- NOTE | 2021-03-25 17:04 | CON ---
Date of Consultation: 03/24/2021 Reason For Consultation: Hypertension and chest pain. History Of Present Illness: Ms. Holm is 65. Has a history of hypertension, dyslipidemia, gastroe sophageal reflux disease, and breast cancer. She has had double mastectomy. She came in her blood p ressure of 205/143, which was treated in the emergency room and her last pressure was 130/86. She wa s tachycardic and sinus tach, afebrile with a pulse ox of 97% on room air. Had chest pain, had short ness of breath with her blood pressure being so elevated. Her chest was tight. Review of Systems: Negative. Social History: Negative. Family History: Negative. Medications: At home include aspirin, lisinopril, metoprolol, and Protonix. Physical Examination: By the time I saw her; her blood pressure was 133/70 with a heart rate of 65. Laboratory Data: All her workup blood work stanley was fairly unremarkable except for a slightly low po tassium at 3.2. Her troponin was negative. Her cholesterol was 202. She was COVID negative. Her c hest x-ray was normal. Her EKG was normal. Her CTA of the chest was negative for pulmonary embolus. Impression And Plan: 1.Atypical chest pain. 2.Hypertension. 3.Dyslipidemia. 4.Gastroesophageal reflux disease. 5.Breast cancer. The patient is presently on aspirin, Lovenox, metoprolol, lisinopril. She is not having any symptoms. I think she can definitely go home and have an outpatient cardiac workup. Cont inue her present regimen. Case was discussed with Dr. Bearden. SIS/ANGELA Voice ID: [id number] Report ID: [id number]
== END 2021-03-24 11:55 | disposition home or self-care (01) ==
LOC: ER 09:41 → ERHOLD 13:08 → INTOOBSV 13:08 → 2ND 17:49
PROVIDERS: ADMIT Family Medicine; ATTEND Family Medicine
DX: R07.89 Other chest pain (principal); I10 Essential (primary) hypertension; K21.9 Gastro-esophageal reflux disease without esophagitis; K44.9 Diaphragmatic hernia without obstruction or gangrene; E78.5 Hyperlipidemia, unspecified; F32.A Depression, unspecified; Z23 Encounter for immunization; Z20.822 Contact with and (suspected) exposure to COVID-19; Z79.82 Long term (current) use of aspirin; Z79.899 Other long term (current) drug therapy; Z88.8 Allergy status to other drugs, medicaments and biological substances; Z85.3 Personal history of malignant neoplasm of breast; Z90.13 Acquired absence of bilateral breasts and nipples; Z82.49 Family history of ischemic heart disease and other diseases of the circulatory system
CPT/HCPCS: 93005; 85025 ×2; 80048; 36415; 83735 ×2; 84132; 85610; 80061; 80076; 84443; 84484 ×3; 84439; 80053; 83880; 71275; 74176; 71045; 90471 ×2; 90732; 96374; 99285; U0003; Q9967; J0360; Q2035; C9113; J1650; J7030 ×3; J2405; G0378 ×3

== ENCOUNTER 2021-03-31 00:34 | Emergency (ER) | payer BC ==
[2021-03-31] MEDS ORDERED: MORPHINE 4 MG/ML SYR ONE ×2 (01:25→02:54)
[2021-03-31] MEDS ORDERED: FAMOTIDINE 20 MG/2 ML VIAL IV ONE (01:25)
[2021-03-31] MEDS ORDERED: ONDANSETRON 4 MG/2 ML VIAL ONE ×2 (01:25→02:54)
[2021-03-31] MEDS ORDERED: NA CHLORIDE 0.9% 500 ML ONE ×3 (01:26→02:25)
[2021-03-31 01:34] LABS: Absolute Lymphocytes (CBC) 2.6 K/uL (0.7-4.9); Basophils % 1.1 % (0-1.3); Hematocrit 41.1 % (36.0-45.0); Lymphocytes % 27.1 % (15.3-44.8); MPV 8.2 fL (7.6-11.3); RBC Red Blood Cell Count 4.12 M/uL (3.86-4.86)
[2021-03-31 01:50] LABS: ALT/SGPT 31 U/L (12-78); AST/SGOT 22 U/L (15-37); Albumin 4.2 g/dL (3.4-5.0); Alkaline Phosphatase 85 U/L (45-117); BUN Blood Urea Nitrogen 14 mg/dL (7-18); Bicarbonate 28 mmol/L (21-32); Bilirubin Direct < 0.1 mg/dL (0-0.2); Bilirubin Total 0.2 mg/dL (0.2-1.0); Glucose Level 160 mg/dL (74-106); Lipase 145 U/L (73-393); Magnesium 2.1 mg/dL (1.8-2.4); Potassium 3.3 mmol/L (3.5-5.1); Protein, Total 8.1 g/dL (6.4-8.2); Sodium Level 141 mmol/L (136-145); Troponin (Emerg Dept Use Only) < 0.02 ng/mL (0.0-0.045)
[2021-03-31 02:06] LABS: Urine Blood Trace-intact (Negative); Urine Glucose Negative (Negative); Urine Protein Negative (Negative); Urine Specific Gravity 1.025 (1.005-1.030); Urine pH 7.5 (5.0-7.0)
--- NOTE | 2021-03-31 03:14 | EDPHYS ---
Physician Documentation [facility] Name: Sherrell Holm Age: 65 yrs Sex: Female : 1955 Arrival Date: 03/31/2021 Time: 00:39 Bed 15 Private MD: ED Physician Osorio Moss HPI: 03/31 00:57 This 65 yrs old Female presents to ER via Ambulatory with complaints of cp Abdominal Pain and Vomiting. 00:58 The patient presents with abdominal pain that is diffuse. Onset: The symptoms/episode cp began/occurred today. Associated signs and symptoms: Pertinent positives: nausea and vomiting, diarrhea, dysuria. The symptoms are described as constant. Severity of pain: in the emergency department the pain is unchanged despite home interventions. Historical: - Allergies: 00:55 cancer medication; df1 - Home Meds: 00:55 unable to verify [Active]; df1 - PMHx: 00:55 breast cancer; df1 - PSHx: 00:55 double mastectomy; df1 - Immunization history:: Adult Immunizations up to date, Client reports having NOT received the Covid vaccine. - Social history:: Smoking status: Patient denies any tobacco usage or history of. ROS: 01:00 Constitutional: Negative for fever. cp 01:00 Eyes: Negative for injury, pain, redness, and discharge. cp 01:00 ENT: Negative for drainage from ear(s), ear pain, sore throat, difficulty swallowing, difficulty handling secretions. 01:00 Abdomen/GI: Positive for abdominal pain, nausea, vomiting, and diarrhea, Negative for constipation, black/tarry stool, rectal bleeding. 01:00 : Positive for burning with urination. 01:00 Neuro: Negative for altered mental status, headache, weakness. 01:00 Respiratory: Negative for cough, shortness of breath, wheezing. cp 01:00 Cardiovascular: Negative for chest pain, palpitations. cp 01:00 All other systems are negative. Exam: 01:05 Constitutional: The patient appears in no acute distress, alert, awake, non-toxic, well cp developed, well nourished, uncomfortable. 01:05 Head/Face: Normocephalic, atraumatic. cp 01:05 Eyes: Periorbital structures: appear normal, Conjunctiva: normal, no exudate, no injection, Sclera: no appreciated abnormality, Lids and lashes: appear normal, bilaterally. 01:05 ENT: External ear(s): are unremarkable, Nose: is normal, Mouth: Lips: moist, Oral mucosa: moist, Posterior pharynx: Airway: no evidence of obstruction, patent. 01:05 Neck: ROM/movement: is normal, is supple, without pain, no range of motions limitations, no meningismus. 01:05 Chest/axilla: Inspection: normal, Palpation: is normal, no crepitus, no tenderness. 01:05 Cardiovascular: Rate: normal, Rhythm: regular. 01:05 Respiratory: the patient does not display signs of respiratory distress, Respirations: normal, no use of accessory muscles, no retractions, labored breathing, is not present, Breath sounds: are clear throughout, no decreased breath sounds. 01:05 Abdomen/GI: Inspection: abdomen appears normal, Bowel sounds: active, all quadrants, Palpation: soft, in all quadrants, moderate abdominal tenderness, in all quadrants, rebound tenderness, is not appreciated, involuntary guarding, is not appreciated. 01:05 Back: pain, is absent, ROM is normal. 01:05 Neuro: Orientation: to person, place \T\ time. Mentation: is normal. 01:06 ECG was reviewed by the Attending Physician. cp Vital Signs: 00:53 BP 161 / 94; Pulse 73; Resp 18; Temp 97.5; Pulse Ox 97% on R/A; Weight 63.96 kg; Height df1 5 ft. 0 in. (152.40 cm); Pain 8/10; 01:22 BP 150 / 77; Pulse 53; Resp 18; Pulse Ox 96% on R/A; df1 02:38 BP 173 / 91; Pulse 62; Resp 18; Pulse Ox 95% on R/A; df1 03:07 BP 130 / 79; Pulse 55; Resp 18; Pulse Ox 95% on R/A; df1 04:28 BP 124 / 90; Pulse 70; Resp 18; Pulse Ox 100% on R/A; df1 00:53 Body Mass Index 27.54 (63.96 kg, 152.40 cm) df1 MDM: 00:43 Patient medically screened. cp 01:05 Differential diagnosis: appendicitis, bowel obstruction, cholecystitis, Cholelithiasis, cp diverticulitis, gastritis, non-specific abd pain, pancreatitis. 03:30 Data reviewed: vital signs, nurses notes, lab test result(s), radiologic studies, CT cp scan, plain films. 03:30 Test interpretation: by ED physician or midlevel provider: chest xray negative for cp infiltrates. Response to treatment: the patient's symptoms have mildly improved after treatment, Pain improved. Patient continues to have nausea and vomiting. Transition of care: After a detail discussion of the patient's case, care is transferred to Osorio Moss MD. 03/31 00:57 Order name: Basic Metabolic Panel; Complete Time: 01:51 cp 03/31 01:51 Interpretation: Normal except: K 3.3; GLUC 160; GFR 57. cp 03/31 00:57 Order name: CBC with Diff; Complete Time: 01:51 cp 03/31 01:52 Interpretation: Reviewed. cp 03/31 00:57 Order name: Hepatic Function; Complete Time: 01:51 cp 03/31 01:52 Interpretation: Normal except: GLOB 3.9. cp 03/31 00:57 Order name: Lipase; Complete Time: 01:51 cp 03/31 00:57 Order name: Magnesium; Complete Time: 01:51 cp 03/31 00:57 Order name: Troponin (emerg Dept Use Only); Complete Time: 01:51 cp 03/31 00:57 Order name: XRAY Chest (1 view) cp 03/31 00:57 Order name: Lactate; Complete Time: 01:53 cp 03/31 01:53 Interpretation: Abnormal: LAC 2.1. cp 03/31 01:36 Order name: CT Abd/Pelvis - IV Contrast Only cp 03/31 02:06 Order name: Urine Dipstick-Ancillary; Complete Time: 02:11 EDMS 03/31 00:57 Order name: IV Saline Lock; Complete Time: 01:21 cp 03/31 00:57 Order name: Labs collected and sent; Complete Time: 01:21 cp 03/31 00:57 Order name: EKG; Complete Time: 00:57 cp 03/31 00:57 Order name: EKG - Nurse/Tech; Complete Time: 01:08 cp 03/31 00:57 Order name: Urine Dipstick-Ancillary (obtain specimen); Complete Time: 01:55 cp 03/31 03:12 Order name: PO challenge; Complete Time: 04:29 cp EC:06 Rate is 81 beats/min. Rhythm is regular. OK interval is normal. QRS interval is normal. cp QT interval is normal. T waves are Inverted in lead aVR. Interpreted by me. Reviewed by me. Administered Medications: 01:20 Drug: Pepcid (famotidine) 20 mg Route: IVP; Site: right antecubital; df1 01:56 Follow up: Response: No adverse reaction df1 01:20 Drug: morphine 4 mg Route: IVP; Site: right antecubital; df1 01:56 Follow up: Response: Pain is decreased df1 01:21 Drug: Zofran (Ondansetron) 4 mg Route: IVP; Site: right antecubital; df1 01:56 Follow up: Response: Nausea is decreased df1 01:21 Drug: NS 0.9% 500 ml Route: IV; Rate: bolus; Site: right antecubital; df1 01:58 Follow up: IV Status: Completed infusion; IV Intake: 500ml df1 01:49 Drug: NS 0.9% 500 ml Route: IV; Rate: 125 ml/hr; Site: right antecubital; df1 02:03 Drug: NS 0.9% 500 ml Route: IV; Rate: bolus; Site: right antecubital; df1 03:37 Follow up: IV Status: Completed infusion; IV Intake: 500ml df1 02:37 Drug: morphine 4 mg Route: IVP; Site: right antecubital; df1 03:37 Follow up: Response: No adverse reaction; Pain is unchanged, physician notified df1 02:37 Drug: Zofran (Ondansetron) 4 mg Route: IVP; Site: right antecubital; df1 03:37 Follow up: Response: Nausea is increased df1 03:37 CANCELLED (Duplicate Order): Zofran (Ondansetron) 4 mg IVP once; over 2 minutes df1 03:44 Drug: Phenergan (promethazine) 25 mg Route: IVP; Site: right antecubital; df1 Disposition: 04:16 Co-signature as Attending Physician, Osorio Moss MD. pkl Disposition Summary: 03/31/21 04:17 Discharge Ordered Location: Home(03/31/21 04:17) pkl Problem: new(03/31/21 04:17) pkl Symptoms: have improved(03/31/21 04:17) pkl Condition: Stable(03/31/21 04:17) pkl Diagnosis - Abdominal pain. Hital hernia pkl Followup: pkl - With: Private Physician - When: 2 - 3 days - Reason: Re-evaluation by your physician Discharge Instructions: - Discharge Summary Sheet pkl Forms: - Medication Reconciliation Form pkl - Thank You Letter pkl - Antibiotic Education pkl - Prescription Opioid Use pkl Prescriptions: - promethazine 25 mg Oral Tablet - take 1 tablet by ORAL route every 6 hours As needed; 20 tablet; Refills: 0, pkl Product Selection Permitted Signatures: Dispatcher [employer] EDMS Osorio Moss MD MD pkl Jordan Araya PA PA cp Claire Avendaño df1 Corrections: (The following items were deleted from the chart) 01:55 01:53 [place] ordered. cp df1 03:19 03:14 Home cp cp 03:19 03:14 new cp cp 03:19 03:14 have improved cp cp 03:19 03:14 Stable cp cp 03:19 03:14 Nausea with vomiting, unspecified cp cp 03:19 03:14 Diarrhea, unspecified cp cp 03:37 03:13 Zofran (Ondansetron) 4 mg IVP once; over 2 minutes ordered. cp df1
--- NOTE | 2021-03-31 03:14 | ER ---
Nurse's Notes [facility] Name: Sherrell Holm Age: 65 yrs Sex: Female : 1955 Arrival Date: 03/31/2021 Time: 00:39 Bed 15 Private MD: Diagnosis: Abdominal pain. Hital hernia Presentation: 03/31 00:53 Chief complaint: Patient states: ABD pain start today. Coronavirus screen: Vaccine df1 status: Patient reports being unvaccinated. The client reports previous COVID testing was negative. Date of collection: March 24, 2021. Ebola Screen: Patient negative for fever greater than or equal to 101.5 degrees Fahrenheit, and additional compatible Ebola Virus Disease symptoms Patient denies exposure to infectious person. Patient denies travel to an Ebola-affected area in the 21 days before illness onset. Initial Sepsis Screen: Does the patient meet any 2 criteria? No. Patient's initial sepsis screen is negative. Does the patient have a suspected source of infection? No. Patient's initial sepsis screen is negative. Risk Assessment: Do you want to hurt yourself or someone else? Patient reports no desire to harm self or others. Onset of symptoms was March 30, 2021. 00:53 Method Of Arrival: Ambulatory df1 00:53 Acuity: GRACE 3 df1 02:37 Note Pt returned from CT Scan with increased pain and emesis. Provider notified. Orders df1 received. 03:38 Note Once pt stood to ambulate, immediately vomited. Provider notified. Orders received.df1 04:28 Note Pt given water for PO Challenge. df1 04:58 Note Pt tolerated fluids. Pt to be dc'd home with scripts for nausea. df1 Triage Assessment: 00:56 General: Appears uncomfortable, ill, Behavior is calm, cooperative. Pain: Complains of df1 pain in abdomen Pain currently is 7 out of 10 on a pain scale. EENT: No deficits noted. Neuro: No deficits noted. Cardiovascular: No deficits noted. Respiratory: Respiratory effort is even, unlabored, Respiratory pattern is regular, Breath sounds are clear bilaterally. GI: Bowel sounds present X 4 quads. Abd is soft Abdomen is tender to palpation Reports lower abdominal pain, upper abdominal pain. : Reports burning with urination. Derm: No deficits noted. Musculoskeletal: No deficits noted. Historical: - Allergies: 00:55 cancer medication; df1 - Home Meds: 00:55 unable to verify [Active]; df1 - PMHx: 00:55 breast cancer; df1 - PSHx: 00:55 double mastectomy; df1 - Immunization history:: Adult Immunizations up to date, Client reports having NOT received the Covid vaccine. - Social history:: Smoking status: Patient denies any tobacco usage or history of. Screenin:56 Abuse screen: Denies threats or abuse. Nutritional screening: No deficits noted. df1 Tuberculosis screening: No symptoms or risk factors identified. Fall Risk None identified. Assessment: 01:23 General: Appears uncomfortable, well groomed, Behavior is calm, cooperative, Reports. df1 Pain: Complains of pain in abdomen Pain does not radiate. Pain currently is 7 out of 10 on a pain scale. Pain began suddenly. Neuro: No deficits noted. Cardiovascular: No deficits noted. Respiratory: No deficits noted. Respiratory effort is even, unlabored, Respiratory pattern is regular, Breath sounds are clear bilaterally. GI: Last BM was March 30, 2021. Bowel sounds present X 4 quads. Abd is soft Abdomen is tender to palpation Reports lower abdominal pain, upper abdominal pain, diarrhea, nausea, vomiting. : Reports burning with urination. EENT: No deficits noted. Derm: No deficits noted. Musculoskeletal: No deficits noted. Vital Signs: 00:53 BP 161 / 94; Pulse 73; Resp 18; Temp 97.5; Pulse Ox 97% on R/A; Weight 63.96 kg; Height df1 5 ft. 0 in. (152.40 cm); Pain 8/10; 01:22 BP 150 / 77; Pulse 53; Resp 18; Pulse Ox 96% on R/A; df1 02:38 BP 173 / 91; Pulse 62; Resp 18; Pulse Ox 95% on R/A; df1 03:07 BP 130 / 79; Pulse 55; Resp 18; Pulse Ox 95% on R/A; df1 04:28 BP 124 / 90; Pulse 70; Resp 18; Pulse Ox 100% on R/A; df1 00:53 Body Mass Index 27.54 (63.96 kg, 152.40 cm) df1 ED Course: 00:39 Patient arrived in ED. ja2 00:40 Jordan Araya PA is PHCP. cp 00:41 Osorio Moss MD is Attending Physician. cp 00:44 Claire Avendaño is Primary Nurse. df1 00:55 Triage completed. df1 00:57 Arm band placed on right wrist. df1 00:58 Patient has correct armband on for positive identification. Placed in gown. Bed in low df1 position. Call light in reach. Side rails up X 1. 01:21 Lactate Sent. df1 01:21 Troponin (emerg Dept Use Only) Sent. df1 01:21 Magnesium Sent. df1 01:21 Basic Metabolic Panel Sent. df1 01:21 CBC with Diff Sent. df1 01:22 Inserted saline lock: 20 gauge in right antecubital area, using aseptic technique. df1 01:40 XRAY Chest (1 view) In Process Unspecified. EDMS 02:03 CT Abd/Pelvis - IV Contrast Only Sent. df1 02:20 CT Abd/Pelvis - IV Contrast Only In Process Unspecified. EDMS 04:59 No provider procedures requiring assistance completed. IV discontinued, intact. df1 Administered Medications: 01:20 Drug: Pepcid (famotidine) 20 mg Route: IVP; Site: right antecubital; df1 01:56 Follow up: Response: No adverse reaction df1 01:20 Drug: morphine 4 mg Route: IVP; Site: right antecubital; df1 01:56 Follow up: Response: Pain is decreased df1 01:21 Drug: Zofran (Ondansetron) 4 mg Route: IVP; Site: right antecubital; df1 01:56 Follow up: Response: Nausea is decreased df1 01:21 Drug: NS 0.9% 500 ml Route: IV; Rate: bolus; Site: right antecubital; df1 01:58 Follow up: IV Status: Completed infusion; IV Intake: 500ml df1 01:49 Drug: NS 0.9% 500 ml Route: IV; Rate: 125 ml/hr; Site: right antecubital; df1 02:03 Drug: NS 0.9% 500 ml Route: IV; Rate: bolus; Site: right antecubital; df1 03:37 Follow up: IV Status: Completed infusion; IV Intake: 500ml df1 02:37 Drug: morphine 4 mg Route: IVP; Site: right antecubital; df1 03:37 Follow up: Response: No adverse reaction; Pain is unchanged, physician notified df1 02:37 Drug: Zofran (Ondansetron) 4 mg Route: IVP; Site: right antecubital; df1 03:37 Follow up: Response: Nausea is increased df1 03:37 CANCELLED (Duplicate Order): Zofran (Ondansetron) 4 mg IVP once; over 2 minutes df1 03:44 Drug: Phenergan (promethazine) 25 mg Route: IVP; Site: right antecubital; df1 Intake: 01:58 IV: 500ml; Total: 500ml. df1 03:37 IV: 500ml; Total: 1000ml. df1 Outcome: 03:14 Discharge ordered by MD. cp 04:17 Discharge ordered by MD. pkl 04:59 Discharged to home via wheelchair. df1 04:59 Condition: stable 04:59 Discharge instructions given to patient, significant other, Instructed on discharge instructions, follow up and referral plans. medication usage, Demonstrated understanding of instructions, follow-up care, medications, Prescriptions given X 2. 04:59 Patient left the ED. df1 Signatures: Dispatcher [employer] EDMS Osorio Moss MD MD pkl Ballard, Brenda, RN RN bb Page, Corey, PA PA cp Alexander, Jessica ja2 Furlich, Dawn df1 Corrections: (The following items were deleted from the chart) 02:58 01:54 Reassessment: Jordan GALEANO on phone to Dr Boudreaux for doc to doc humberto paul
[2021-03-31] MEDS ORDERED: NA CHLORIDE 0.9% 50 ML ONE (04:05)
[2021-03-31] MEDS ORDERED: PROMETHAZINE INJ 25 MG/ML AMP ONE (04:05)
[2021-03-31 05:06] VITALS: TEMP 97.5
[2021-03-31 05:11] VITALS: BP 124/90; O2SAT 100
--- NOTE | 2021-03-31 12:05 | RAD REPORT ---
EXAM DESCRIPTION: RAD - Chest Single View - 03/31/2021 1:40 am CLINICAL HISTORY: abdominal pain Chest pain. COMPARISON: Chest Single View dated 03/23/2021; CHEST SINGLE VIEW dated 04/27/2014; Abdomen Pelvis W Contrast dated 03/31/2021 FINDINGS: Portable technique limits examination quality. The lungs are grossly clear. The heart is normal in size. Right-sided port catheter its tip in the SV C.Bilateral axillary eliazar dissection clips seen. IMPRESSION: No acute intrathoracic process suspected.
--- NOTE | 2021-03-31 22:35 | RAD REPORT ---
EXAM DESCRIPTION: CT Abdomen and Pelvis With Intravenous Contrast CLINICAL HISTORY: The patient is 65 years old and is Female; ABD PAIN TECHNIQUE: Axial computed tomography images of the abdomen and pelvis with intravenous contrast. S agittal and coronal reformatted images were created and reviewed. This CT exam was performed using one or more of the following dose reduction techniques: automated exposure control, adjustment of t he mA and/or kV according to patient size, and/or use of iterative reconstruction technique. COMPARISON: CT abdomen and pelvis March 23, 2021. FINDINGS: Lung bases: Unremarkable. No mass. No consolidation. Mediastinum: 6.7 cm hiatal hernia, similar to prior. ABDOMEN: Liver: Unremarkable. No mass. Gallbladder and bile ducts: Unremarkable. No calcified stones. No ductal dilation. Pancreas: Unremarkable. No mass. No ductal dilation. Spleen: Unremarkable. No splenomegaly. Adrenals: Unremarkable. No mass. Kidneys and ureters: There are a few small low-density lesions in the kidneys which are nonspecif ic but may represent hemorrhagic or proteinaceous cysts. Stomach and bowel: Scattered colonic diverticula. No obstruction. No mucosal thickening. PELVIS: Appendix: No findings to suggest acute appendicitis. Bladder: Bladder is distended. Reproductive: Unremarkable as visualized. ABDOMEN and PELVIS: Intraperitoneal space: Unremarkable. No free air. No significant fluid collection. Bones/joints: No acute fracture. No dislocation. Soft tissues: Unremarkable. Vasculature: Unremarkable. No abdominal aortic aneurysm. Lymph nodes: Unremarkable. No enlarged lymph nodes. IMPRESSION: No acute findings in the abdomen or pelvis. 6.7 cm hiatal hernia, similar to prior. Electronically signed by: Margarito Ferris MD 03/31/2021 3:06 AM CDT Due to temporary technical issues with the PACS/Fluency reporting system, reports are being signed by the in house radiologists without review as a courtesy to insure prompt reporting. The interpreting radiologist is fully responsible for the content of the report.
== END 2021-03-31 04:59 | disposition home or self-care (01) ==
LOC: ER 00:34
DX: K44.9 Diaphragmatic hernia without obstruction or gangrene (principal); Z85.3 Personal history of malignant neoplasm of breast; Z90.13 Acquired absence of bilateral breasts and nipples
CPT/HCPCS: 96361; 93005; 85025; 80048; 36415; 83735; 80076; 83605; 81003; 84484; 83690; 74177; 71045; 96375; 96374; 99284; Q9967; J2550; J7040 ×3; J2405 ×2

== ENCOUNTER 2021-09-08 17:33 | Emergency (ER) | payer BC ==
--- NOTE | 2021-09-08 19:00 | RAD REPORT ---
EXAM DESCRIPTION: RAD - Chest Single View - 09/08/2021 6:51 pm CLINICAL HISTORY: CHEST PAIN COMPARISON: Chest Single View dated 03/31/2021; Chest Single View dated 03/23/2021; CHEST SINGLE VIEW dated 04/27/2014 FINDINGS: Lines: None. Lungs: No evidence of edema or pneumonia. Pleural: No significant pleural effusions or pneumothorax. Cardiac: The heart size is within normal limits. Bones: No acute fractures. Other: Port-A-Cath. Surgical clips in both axillas. Small hiatal hernia. IMPRESSION: No acute cardiopulmonary disease.
[2021-09-08 19:07] LABS: Absolute Lymphocytes (CBC) 2.9 K/uL (0.7-4.9); Hematocrit 40.2 % (36.0-45.0); Lymphocytes % 37.3 % (15.3-44.8); MPV 7.7 fL (7.6-11.3); RBC Red Blood Cell Count 4.09 M/uL (3.86-4.86)
[2021-09-08 19:24] LABS: Potassium 3.4 mmol/L (3.5-5.1); Troponin High Sensitivity 8.7 pg/mL (<58.9)
--- NOTE | 2021-09-08 20:44 | EDPHYS ---
Physician Documentation [facility] Name: Sherrell Holm Age: 65 yrs Sex: Female : 1955 Arrival Date: 09/08/2021 Time: 17:34 Bed 19 Private MD: ED Physician Eloy Ward HPI: 09/08 18:04 This 65 yrs old Female presents to ER via Ambulatory with complaints of High ms3 Blood Pressure. 18:04 The patient has elevated blood pressure and discovered this at a physician's office, vt3 and sent to the emergency department for evaluation. Onset: The symptoms/episode began/occurred acutely. Modifying factors: The symptoms are aggravated by. Associated signs and symptoms: The patient has no apparent associated signs or symptoms. 65-year-old female presents with her from clinic for elevated blood pressure. Patient states she went to the clinic to have her medications refilled and her hypertension was discovered resulting in her coming to the emergency department. Patient states she is also having some chest pressure that she rates a 9/10 that began on Friday. Patient states that chest discomfort feels like "phlegm". Patient endorses shortness of breath. Patient denies nausea, vomiting, diaphoresis.. Historical: - Allergies: 18:04 cancer medication; vg1 - Home Meds: 18:04 Unsure of BP med [Active]; vg1 - PMHx: 18:04 breast cancer; Hypertensive disorder; vg1 - PSHx: 18:04 double mastectomy; vg1 - Immunization history:: Client reports having NOT received the Covid vaccine. - Social history:: Smoking status: Patient denies any tobacco usage or history of. ROS: 18:04 Constitutional: Negative for fever, and chills. Eyes: Negative for injury, pain, ms3 redness, and discharge, Neck: Negative for injury, pain, and swelling, Respiratory: Negative for shortness of breath, cough, wheezing, and pleuritic chest pain, Abdomen/GI: Negative for abdominal pain, nausea, vomiting, diarrhea, and constipation, MS/Extremity: Negative for injury and deformity, Skin: Negative for injury, rash, and discoloration, Neuro: Negative for headache, weakness, numbness, tingling. Psych: Negative for depression, anxiety, suicide ideation, homicidal ideation, and hallucinations. 18:04 Cardiovascular: Positive for chest pain. Exam: 18:04 Constitutional: This is a well developed, well nourished patient who is awake, alert, ms3 and in no acute distress. Head/Face: Normocephalic, atraumatic. ENT: Nares patent. No nasal discharge, no septal abnormalities noted. Tympanic membranes are normal and external auditory canals are clear. Oropharynx with no redness, swelling, or masses, exudates, or evidence of obstruction, uvula midline. Mucous membranes moist. Chest/axilla: Normal chest wall appearance and motion. Nontender with no deformity. Cardiovascular: Regular rate and rhythm with a normal S1 and S2. No gallops, murmurs, or rubs. Normal PMI, no JVD. No pulse deficits. Respiratory: Lungs have equal breath sounds bilaterally, clear to auscultation and percussion. No rales, rhonchi or wheezes noted. No increased work of breathing, no retractions or nasal flaring. Abdomen/GI: Soft, non-tender, with normal bowel sounds. No distension or tympany. No guarding or rebound. No evidence of tenderness throughout. Skin: Warm, dry with normal turgor. Normal color with no rashes, no lesions, and no evidence of cellulitis. Psych: Awake, alert, with orientation to person, place and time. Behavior, mood, and affect are within normal limits. 19:00 ECG was reviewed by the Attending Physician. ms3 Vital Signs: 18:01 BP 200 / 97; Pulse 74; Resp 16; Temp 98.8; Pulse Ox 100% ; Weight 62.6 kg; Height 5 ft. vg1 1 in. (154.94 cm); Pain 9/10; 21:03 BP 166 / 88 LA Supine (auto/reg); Pulse 62 MON; Resp 14 S; Pulse Ox 99% on R/A; Pain sv1 0/10; 18:01 Body Mass Index 26.07 (62.60 kg, 154.94 cm) vg1 MDM: 18:04 Differential diagnosis: hypertensive crisis, ACS vs Renal insufficiency vs HTN. ms3 18:17 Patient medically screened. ms3 21:02 Data reviewed: vital signs, nurses notes, lab test result(s), radiologic studies. 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 Counseling: I had a detailed discussion with the patient and/or guardian regarding: the historical points, exam findings, and any diagnostic results supporting the discharge/admit diagnosis, the presence of at least one elevated blood pressure reading (>120/80) during this emergency department visit, lab results, radiology results, the need for outpatient follow up, to return to the emergency department if symptoms worsen or persist or if there are any questions or concerns that arise at home. 09/08 18:17 Order name: Basic Metabolic Panel; Complete Time: 19:34 ms3 09/08 18:17 Order name: CBC with Diff; Complete Time: 19:34 ms3 09/08 18:17 Order name: Troponin HS; Complete Time: 19:34 ms3 09/08 18:17 Order name: XRAY Chest (1 view); Complete Time: 19:34 ms3 09/08 18:17 Order name: EKG; Complete Time: 18:18 ms3 09/08 18:17 Order name: Cardiac monitoring; Complete Time: 18:54 ms3 09/08 18:17 Order name: EKG - Nurse/Tech; Complete Time: 19:06 ms3 09/08 18:17 Order name: IV Saline Lock; Complete Time: 18:54 ms3 09/08 18:17 Order name: Labs collected and sent; Complete Time: 18:54 ms3 09/08 18:17 Order name: O2 Per Protocol; Complete Time: 18:54 ms3 09/08 18:17 Order name: O2 Sat Monitoring; Complete Time: 18:54 ms3 EC:00 Rate is 63 beats/min. Rhythm is regular. QRS [place] is Normal. Clinical impression: ms3 Normal ECG. Interpreted by me. Administered Medications: 21:02 Drug: Lisinopril 20 mg Route: PO; sv1 21:02 Follow up: Response: No adverse reaction sv1 21:02 Drug: Lisinopril 10 mg Route: PO; sv1 21:02 Follow up: Response: No adverse reaction sv1 Disposition Summary: 09/08/21 20:44 Discharge Ordered Location: Home ms3 Condition: Stable ms3 Diagnosis - Essential (primary) hypertension ms3 - Chest pain, unspecified ms3 - GERD ms3 Followup: ms3 - With: Private Physician - When: 2 - 3 days - Reason: Re-evaluation by your physician Discharge Instructions: - Discharge Summary Sheet ms3 - Nonspecific Chest Pain, Adult ms3 - Hypertension, Adult ms3 Forms: - Medication Reconciliation Form ms3 - Thank You Letter ms3 - Antibiotic Education ms3 - Prescription Opioid Use ms3 Prescriptions: - Protonix 40 mg Oral Tablet - take 1 tablet by ORAL route once daily; 30 tablet; Refills: 0, Product ms3 Selection Permitted Signatures: Dispatcher [employer] EDChristie Herrera, RN RN vg1 Eloy Ward DO DO ms3 Monico Landis, RN RN sv1
--- NOTE | 2021-09-08 20:44 | ER ---
Nurse's Notes [facility] Name: Sherrell Holm Age: 65 yrs Sex: Female : 1955 Arrival Date: 09/08/2021 Time: 17:34 Bed 19 Private MD: Diagnosis: Essential (primary) hypertension;Chest pain, unspecified;GERD Presentation: 09/08 18:01 Chief complaint: Spouse and/or significant other states: pt was at [facility] get BP meds refilled and BP was 200s systolic, clinic told pt to come to ED; also states has blood in urine. State chest pressure and SOB; Denies [place] or h/a. Coronavirus screen: Vaccine status: Patient reports being unvaccinated. Client denies travel out of the [place] in the last 14 days. Ebola Screen: Patient negative for fever greater than or equal to 101.5 degrees Fahrenheit, and additional compatible Ebola Virus Disease symptoms. Initial Sepsis Screen: Does the patient meet any 2 criteria? No. Patient's initial sepsis screen is negative. Does the patient have a suspected source of infection? No. Patient's initial sepsis screen is negative. Risk Assessment: Do you want to hurt yourself or someone else? Patient reports no desire to harm self or others. Onset of symptoms was September 08, 2021. 18:01 Method Of Arrival: Ambulatory [facility] 18:01 Acuity: GRACE 2 1 Triage Assessment: 18:04 General: Appears uncomfortable, Behavior is cooperative. Pain: Complains of pain in 1 chest. Historical: - Allergies: 18:04 cancer medication; vg1 - Home Meds: 18:04 Unsure of BP med [Active]; vg1 - PMHx: 18:04 breast cancer; Hypertensive disorder; vg1 - PSHx: 18:04 double mastectomy; vg1 - Immunization history:: Client reports having NOT received the Covid vaccine. - Social history:: Smoking status: Patient denies any tobacco usage or history of. Screenin:04 Abuse screen: Denies threats or abuse. Nutritional screening: No deficits noted. sv1 Tuberculosis screening: No symptoms or risk factors identified. Fall Risk None identified. Vital Signs: 18:01 BP 200 / 97; Pulse 74; Resp 16; Temp 98.8; Pulse Ox 100% ; Weight 62.6 kg; Height 5 ft. vg1 1 in. (154.94 cm); Pain 9/10; 21:03 BP 166 / 88 LA Supine (auto/reg); Pulse 62 MON; Resp 14 S; Pulse Ox 99% on R/A; Pain sv1 0/10; 18:01 Body Mass Index 26.07 (62.60 kg, 154.94 cm) 1 ED Course: 17:34 Patient arrived in ED. as 17:50 Eloy Ward DO is Attending Physician. ms3 18:04 Triage completed. vg1 18:04 Arm band placed on. vg1 18:33 Tawana Conte, CHAS is Primary Nurse. cb5 18:51 XRAY Chest (1 view) In Process Unspecified. EDMS 18:53 Patient has correct armband on for positive identification. Placed in gown. Bed in low mh5 position. Call light in reach. Side rails up X 1. Adult w/ patient. Warm blanket given. monitor car operator on. Pulse ox on. NIBP on. 18:54 Initial lab(s) drawn, by ms, sent to lab. Inserted saline lock: 22 gauge in right 5 antecubital area, using aseptic technique. Blood collected. 18:54 Basic Metabolic Panel Sent. 5 18:54 CBC with Diff Sent. 5 18:55 Troponin HS Sent. [facility] 19:00 Report given to linda Brown 5 19:07 EKG done, by ED staff, reviewed by Eloy Ward DO. 5 21:04 No provider procedures requiring assistance completed. IV discontinued. sv1 Administered Medications: 21:02 Drug: Lisinopril 20 mg Route: PO; sv1 21:02 Follow up: Response: No adverse reaction sv1 21:02 Drug: Lisinopril 10 mg Route: PO; sv1 21:02 Follow up: Response: No adverse reaction sv1 Outcome: 20:44 Discharge ordered by . ms3 21:04 Discharged to home ambulatory, with family. sv1 21:04 Condition: improved 21:04 Discharge instructions given to patient, family. 21:04 Patient left the ED. sv1 Signatures: Dispatcher [employer] EDMS Ana Ken Maria [facility] Christie Fernández RN RN [facility] Eloy Ward DO DO ms3 Monico Landis, RN RN sv1 Tawana Conte, RN RN cb5
[2021-09-08] MEDS ORDERED: lisinopriL 10 MG TAB ONE (21:02)
[2021-09-08 21:11] VITALS: TEMP 98.8
[2021-09-08 21:13] VITALS: BP 166/88; O2SAT 99
--- NOTE | 2021-09-10 08:22 | EKG ---
Test Date: 2021-09-08 Test Time: 19:00:30 Quiller Machine Fixer: TARIQ MEASUREMENT RESULTS: Intervals: Rate: 63 [place]: 136 QRSD: 82 QT: 406 QTc: 415 [place]: P: 35 [place]: 136 QRS: 44 T: 56 INTERPRETIVE STATEMENTS: Normal sinus rhythm Normal ECG Compared to ECG 03/31/2021 01:05:31 Ventricular premature complex(es) no longer present Left ventricular hypertrophy no longer present T-wave abnormality no longer present Electronically Signed On 09-10-21 08:19:56 CDT by Maico Santana
== END 2021-09-08 21:04 | disposition home or self-care (01) ==
LOC: ER 17:33
DX: I10 Essential (primary) hypertension (principal); R07.9 Chest pain, unspecified; K21.9 Gastro-esophageal reflux disease without esophagitis; Z85.3 Personal history of malignant neoplasm of breast; Z90.13 Acquired absence of bilateral breasts and nipples; Z88.8 Allergy status to other drugs, medicaments and biological substances
CPT/HCPCS: 36415; 71045; 80048; 84484; 85025; 93005; 99284